=== PATIENT | male | born 1955 | race Caucasian/White ===

== ENCOUNTER 2017-04-08 07:37 | Day surgery (SDC) | payer OTHER ==
[~2017-04-08] VITALS: Ht 170.2 cm; Wt 68.9 kg
[~2017-04-08 07:37] MED LIST: NAPROSYN250 MG PO
[2017-04-08 08:02] VITALS: BP 138/74
[2017-04-08] MEDS ORDERED: MOTRIN600 MG PO (11:06)
[2017-04-08] MEDS ORDERED: NORCO 5/3251 TABLET PO (11:06)
[2017-04-08 11:34] VITALS: BP 159/72
[2017-04-08 12:23] VITALS: BP 162/79
== END 2017-04-08 12:41 | disposition home or self-care (01) ==
LOC: SDC 07:37
PROC: 0YU50JZ Supplement Right Inguinal Region with Synthetic Substitute, Open Approach (ICD-10-PCS; principal; 2017-04-08)
DX: K40.31 Unilateral inguinal hernia, with obstruction, without gangrene, recurrent (principal); E78.00 Pure hypercholesterolemia, unspecified; Z84.1 Family history of disorders of kidney and ureter
CPT/HCPCS: C1781; J0330; J0690; J2250; J2405; J3010; S0020